=== PATIENT | female | born 1955 | race Caucasian/White ===

== ENCOUNTER 2016-12-10 19:45 | Emergency (ER) | payer OTHER ==
[~2016-12-10] VITALS: Ht 162.6 cm; Wt 91.6 kg
[2016-12-10 19:48] VITALS: Ht 162.6 cm; Wt 91.6 kg
[2016-12-10] MEDS ORDERED: KETOROLAC 30 MG INJ IM STA (20:36)
[2016-12-10] MEDS ORDERED: HYDROCODONE/APAP (5/325) TAB PO ONE (21:00)
--- NOTE | 2016-12-10 21:56 | ERD ---
ER Documentation Chief Complaint Date/Time DATE: 12/10/16 TIME: 21:45 Chief Complaint bug bit to left lower breast and back yesterday in am. HPI This is a 61 year old female presenting to ER with lower back pain that radiates to right leg. Patient reports intermittent numbness and tingling to left posterior leg. No recent injury or fall. No saddle anesthesia. No urinary or fecal incontinence. No fevers or chills. No abdominal pain, vomiting or diarrhea. Patient states she had possible spider bite to lower spine and underneath left breast. Denies itching. No lesions. No erythema, warmth, abscess or drainage. ROS All systems reviewed and are negative except as per history of present illness. Medications Home Meds Active Scripts Hydrocodone/Acetaminophen (Coolin 5-325 Tablet) 1 Each Tablet, 1 EACH PO Q6, #15 TAB Prov:AIRES HARMON NP 12/10/16 Ibuprofen* (Motrin*) 600 Mg Tab, 600 MG PO Q6, #15 TAB Prov:ARIES HARMON NP 12/10/16 PMhx/Soc Medical and Surgical Hx: pt denies Surgical Hx Hx Cardiac Disorders: Yes (HTN) Hx Miscellaneous Medical Probl: Yes (DM) Hx Alcohol Use: No Hx Substance Use: No Hx Tobacco Use: No Smoking Status: Never smoker Physical Exam Vitals Vital Signs Date Time Temp Pulse Resp B/P Pulse Ox O2 Delivery O2 Flow Rate FiO2 12/10/16 19:48 98.4 18 75 152/80 97 Physical Exam Const: alert, anxious Head: Atraumatic Eyes: Normal Conjunctiva ENT: Normal External Ears, Nose and Mouth. Neck: Full range of motion..~ No meningismus. Resp: Clear to auscultation bilaterally Cardio: Regular rate and rhythm, no murmurs Abd: Soft, non tender, non distended. Normal bowel sounds Skin: No petechiae or rashes. No lesions. No erythema, warmth, abscess or drainage. Back: No midline or flank tenderness. No CVA tenderness. Ext: No cyanosis, or edema. Positive right straight leg raise. Neur: Awake and alert Psych: Normal Mood and Affect Results 24 hrs Current Medications Medications (Trade) Dose Ordered Sig/Vimal Route PRN Reason Start Time Stop Time Status Last Admin Dose Admin Ketorolac Tromethamine (Toradol) 30 mg ONCE STAT IM 12/10/16 20:36 12/10/16 20:40 DC 12/10/16 21:15 Acetaminophen/ Hydrocodone Bitart (Coolin (5/325)) 1 tab ONCE ONCE PO 12/10/16 21:00 12/10/16 21:01 DC 12/10/16 21:14 Procedures/MDM [place] [id number] Radiology Main Line: [phone] DIAGNOSTIC IMAGING REPORT Patient: KRISTIAN BUTTERFIELD : 1955 Age: 61 Sex: F MR #: [id number] DOS: 12/10/162035 Ordering MD: ARIES HARMON NP Location: [facility] Room/Bed: PROCEDURE: XR Right Hip. CLINICAL INDICATION: Pain. Numbness. TECHNIQUE: AP and frog lateral views of the right hip were performed. COMPARISON: None. FINDINGS: No fracture or osseous lesion is identified. Joint relationships are maintained. There is no dislocation. Bone mineralization is within normal limits. The soft tissues are unremarkable. IMPRESSION: 1. Unremarkable right hip x-rays series. [place] [id number] Radiology Main Line: [phone] DIAGNOSTIC IMAGING REPORT Patient: KRISTIAN BUTTERFIELD : 1955 Age: 61 Sex: F MR #: [id number] DOS: 12/10/162035 Ordering MD: ARIES HARMON NP Location: [facility] Room/Bed: PROCEDURE: Lumbar spine. CLINICAL INDICATION: Low back pain. TECHNIQUE: Three views including AP, lateral and cone-down lateral view of the lumbar spine were obtained. COMPARISON: None. FINDINGS: There is no acute fracture or subluxation. Lumbar vertebral body heights and alignment are within normal limits. Intervertebral disk spaces are within normal limits. There is bilateral facet arthropathy at L5-S1. IMPRESSION: No evidence of fracture or subluxation. Bilateral facet arthropathy at L5-S1. MDM: 61 year old female presents to ER with lumbar back pain that radiates down right leg. Patient reports intermittent numbness/tingling to posterior right upper leg. Patient reports pain is severe and is rating pain 9/10. Patient took Motrin today with no relief of pain. Patient has positive right straight leg raise on physical exam. No point tenderness. No limping. Patient has normal gait. Denies saddle anesthesia. No new urinary complaints including urinary or fecal incontinence. No fevers or chills. Patient presents to the ER and believes that she has 2 spider bites. Patient states she had small erythematous lesions to lower spine and underneath left breast. Left breast lesion has disappeared since patient first saw it. Patient was concerned that back pain was related to possible spider bite. No lesions or rash noted on physical exam. Patient denies itching or rash. X-ray right hip reviewed by radiologist as unremarkable. X-ray lumbar spine reviewed by radiologist as no evidence of fracture or subluxation. Bilateral facet arthropathy at L5-S1. Patient given Toradol 30 mg IM and Coolin 5 mg/325 mg p.o. Upon reassessment, patient reports pain has completely resolved. Denies numbness or tingling. No loss of sensation. Patient states she has history of chronic back pain with intermittent sciatica. Low suspicion for cauda equina, osteomyelitis, dislocation or fracture. Diagnosis is back pain with sciatica. Patient is appropriate for outpatient management and will be given prescription for ibuprofen and Coolin 5 mg/325 mg #15. Instructed patient to follow-up with primary care provider in the next 2-3 days for reassessment and additional management. Return to ED for any high fever, chest pain, difficulty breathing, shortness breath, wheezing, vomiting, diarrhea, abdominal pain or any new or worsening symptoms. Patient verbalizes understanding. All questions answered at discharge. Yi translation use during this encounter. Departure Diagnosis: Primary Impression: Back pain Back pain location: low back pain Chronicity: acute Back pain laterality: right Sciatica presence: with sciatica Sciatica laterality: sciatica of right side Qualified Code: M54.41 - Acute right-sided low back pain with right -sided sciatica Condition: ARIES Epperson NP Dec 10, 2016 21:55
--- NOTE | 2016-12-10 22:09 | RADRPT ---
PROCEDURE: XR Right Hip. CLINICAL INDICATION: Pain. Numbness. TECHNIQUE: AP and frog lateral views of the right hip were performed. COMPARISON: None. FINDINGS: No fracture or osseous lesion is identified. Joint relationships are maintained. There is no dislo cation. Bone mineralization is within normal limits. The soft tissues are unremarkable. IMPRESSION: 1. Unremarkable right hip x-rays series. RPTAT: HMVK .Tyler Moore MD, MD Date Time Electronically viewed and signed by .Tyler Moore MD, MD on 12/10/2016 22:09 .K/
--- NOTE | 2016-12-10 22:10 | RADRPT ---
PROCEDURE: Lumbar spine. CLINICAL INDICATION: Low back pain. TECHNIQUE: Three views including AP, lateral and cone-down lateral view of the lumbar spine were obtained. COMPARISON: None. FINDINGS: There is no acute fracture or subluxation. Lumbar vertebral body heights and alignment are within n ormal limits. Intervertebral disk spaces are within normal limits. There is bilateral facet arthro raisa at L5-S1. IMPRESSION: No evidence of fracture or subluxation. Bilateral facet arthropathy at L5-S1. .Jayme Atwood MD, MD Date Time Electronically viewed and signed by .Jayme Atwood MD, on 12/10/2016 22:09 .T/
[2016-12-10] MEDS ORDERED: IBUP-1542 PO (22:53)
[2016-12-10] MEDS ORDERED: HYDR-906 PO (22:53)
[2016-12-10 23:14] VITALS: BP 134/77; PULSE 77; RESP 22
== END 2016-12-10 23:19 | disposition home or self-care (01) ==
LOC: FTE 19:45
DX: M54.41 Lumbago with sciatica, right side (principal); I10 Essential (primary) hypertension; E11.9 Type 2 diabetes mellitus without complications
CPT/HCPCS: 72100; 73510; 96372; J1885; Z7502; Z7610

== ENCOUNTER 2017-09-20 17:01 | Emergency (ER) | END 2017-09-20 20:48 | disposition home or self-care (01) ==